=== PATIENT | male | born 1960 | race Caucasian/White ===

== ENCOUNTER 2017-11-29 06:17 | Emergency (ER) | payer BC ==
[~2017-11-29] VITALS: Ht 185.4 cm; Wt 128.8 kg
[2017-11-29 06:27] VITALS: Ht 185.4 cm; Wt 128.8 kg
[2017-11-29 09:28] VITALS: BP 136/83
== END 2017-11-29 09:28 | disposition home or self-care (01) ==
LOC: ED 06:17
DX: M79.605 Pain in left leg (principal)
CPT/HCPCS: J1885; J2270; Q0092; Q0162